=== PATIENT | male | born 2000 | race Caucasian/White ===

== ENCOUNTER 2018-01-26 19:22 | Emergency (ER) | payer OTHER ==
--- NOTE | 2018-01-26 21:08 | ED Physician Documentation ---
PD HPI UPPER EXT INJURY - Stated complaint Stated Complaint: LT MIDDLE FINGER LAC - Chief complaint Chief Complaint: Laceration - History obtained from History obtained from: Patient - History of Present Illness Location: Left, Hand, Finger Type of injury: Laceration Where injury occurred: Home Timing - onset: Today Timing - details: Abrupt onset, Still present Worsened by: Moving, Palpating Similar symptoms before: Has not had sx before Recently seen: Not recently seen - Additonal information Additional information: Patient is a 17 year old male with no significant past medical history who is presenting to the emergency department for a hand laceration. Patient states that he was trying to scrap a sticker off his windshield with a razor blade and it slipped and came back and cut his finger and his hand. patient is up to date on his tetanus. Review of Systems Ten Systems: 10 systems reviewed and negative Skin: reports: Laceration (s) Musculoskeletal: reports: Extremity pain PD PAST MEDICAL HISTORY - Past Medical History Past Medical History: No Other Past Medical History: MRSA to leg in 03/2017 - Past Surgical History Past Surgical History: No - Present Medications Home Medications: Ambulatory Orders Medication Instructions Recorded Confirmed No Known Home Medications [No 01/26/18 01/26/18 Known Home Medications] - Allergies Allergies/Adverse Reactions: Allergies Allergy/AdvReac Type Severity Reaction Status Date / Time No Known Drug Allergies Allergy Verified 01/26/18 19:37 - Social History Does the pt smoke?: Yes Smoking Status: Current every day smoker Does the pt drink ETOH?: No Does the pt have substance abuse?: No - Immunizations Immunizations are current?: Yes - POLST Patient has POLST: No PD ED PE NORMAL - Vitals Vital signs reviewed: Yes - General General: Alert and oriented X 3 - HEENT HEENT: Atraumatic - Cardiac Cardiac: RRR - Respiratory Respiratory: No respiratory distress - Abdomen Abdomen: Non distended - Neuro Neuro: Alert and oriented X 3, No motor deficit Eye Opening: Spontaneous Motor: Obeys Commands Verbal: Oriented GCS Score: 15 PD ED PE EXPANDED - Extremities Extremities: Left hand (1 cm flap laceration), Left finger(s) (1 cm flap laceration of distal portion of third digit, no fingernail involvement) Results - Vitals Vitals: Vital Signs - 24 hr 01/26/18 01/26/18 19:33 21:13 Temperature 36.8 C Heart Rate 61 56 L Respiratory 16 18 Rate Blood Pressure 139/55 H 127/71 O2 Saturation 100 97 Oxygen O2 Source Room air Procedures - Laceration (location) left hand Length in cm: 2 Wound type: Flap Neurovascular status: Sensory intact, Vascular intact Wound Preparation: Irrigated copiously NS, Wound explored Skin layer closure: Dermabond, Steri strips Other: Patient tolerated well, Dressing applied, Tetanus UTD Complexity: Simple PD MEDICAL DECISION MAKING - ED course Complexity details: reviewed old records, re-evaluated patient, considered differential, d/w patient ED course: Patient was seen and examined at bedside. patient's lacerations were cleaned and repaired as described above. Patient required no further work up and was stable for discharge with outpatient follow up. Departure - Departure Disposition: 01 Home, Self Care Clinical Impression: Laceration Condition: Good Instructions: ED Laceration Ext Skin Glue Follow-Up: primary, care provider [Other] - As Needed Comments: Your symptoms today are being caused by a hand laceration. You should keep the area clean and dry. You can take motrin or tylenol as needed for pain. You should monitor for signs of infection and follow up with your doctor for any of those signs. You may return to the emergency department at any time for new, worsening or uncontrollable symptoms. Discharge Date/Time: 01/26/18 21:14
[2018-01-26 21:14] VITALS: BP 127/71
== END 2018-01-26 21:14 | disposition home or self-care (01) ==
LOC: ED 19:22
DX: S61.213A Laceration without foreign body of left middle finger without damage to nail, initial encounter (principal); W45.8XXA Other foreign body or object entering through skin, initial encounter; Y92.009 Unspecified place in unspecified non-institutional (private) residence as the place of occurrence of the external cause
CPT/HCPCS: 12001; 99283

== ENCOUNTER 2019-01-18 20:09 | Emergency (ER) | payer OTHER ==
[2019-01-18 20:19] VITALS: BP 135/52
[2019-01-18] MEDS ORDERED: HYDROcod/ACET 5/325 Prepack 4 PO STA (21:53)
--- NOTE | 2019-01-18 21:54 | ED Physician Documentation ---
PD HPI LOWER EXT INJURY - Stated complaint Stated Complaint: LT KNEE PAIN - Chief complaint Chief Complaint: Ext Problem - History obtained from History obtained from: Patient - History of Present Illness PD HPI LOW EXT INJURY LOCATION: Left (Without specific injury he developed knee pain on both sides of the left knee tonight. He is never had this before. At times it is severe but mild on my evaluation. It is not associated with fevers or chills. He did run a mild today but that is not abnormal for him.) Review of Systems Constitutional: denies: Fever, Chills, Myalgias GI: denies: Abdominal Pain, Nausea, Vomiting PD PAST MEDICAL HISTORY - Past Surgical History Past Surgical History: No - Present Medications Home Medications: Ambulatory Orders Medication Instructions Recorded Confirmed No Known Home Medications 01/26/18 01/26/18 - Allergies Allergies/Adverse Reactions: Allergies Allergy/AdvReac Type Severity Reaction Status Date / Time No Known Drug Allergies Allergy Verified 01/18/19 20:19 - Social History Does the pt smoke?: Yes Smoking Status: Current every day smoker Does the pt drink ETOH?: No Does the pt have substance abuse?: No - Immunizations Immunizations are current?: Yes - POLST Patient has POLST: No PD ED PE NORMAL - Vitals Vital signs reviewed: Yes - General General: Alert and oriented X 3, No acute distress - Extremities Extremities: Other (The left knee is without effusion or tenderness. No warmth or redness. He has full range of motion. There is very mild tenderness in the bilateral joint lines anteriorly and up high, but ACL, PCL, LCL, MCL testing is all tight and without pain and negative grind testing. There is also no tenderness over the IT band.) - Neuro Neuro: Alert and oriented X 3, Normal speech Results - Vitals Vitals: Vital Signs - 24 hr 01/18/19 01/18/19 20:14 22:42 Temperature 36.9 C Heart Rate 91 79 Respiratory 17 17 Rate Blood Pressure 135/52 H O2 Saturation 96 100 Oxygen O2 Source Room air - Rads (name of study) 4v L knee Radiology: EMP read contemporaneously (Knee effusion without fracture. At the proximal tibial diaphysis there is a focal area of lucency with adjacent sclerosis measuring 2.8 x 1.5 cm which could represent a healing fibrous cortical defect. Consider further work-up to exclude malignancy.) Departure - Departure Disposition: Home, Self Care Clinical Impression: Left knee pain Qualifiers: Chronicity: acute Qualified Code(s): M25.562 - Pain in left knee Condition: Good Record reviewed to determine appropriate education?: Yes Comments: As discussed I suspect the abnormal x-ray represents an area where the cartilage never turned to bone. The radiologist is concerned that it might represent something else, follow-up with your flight surgeon tomorrow, he / she will need to set you up for an MRI of the left knee to further evaluate this abnormality. Return if worse. Discharge Date/Time: 01/18/19 22:43
--- NOTE | 2019-01-18 22:34 | XRAY Report ---
Reason: knee pain Procedure Date: 01/18/2019 Accession Number: [id number] / [id number] Procedure: XR - Knee 4 View LT CPT Code: FULL RESULT: EXAM: LEFT KNEE RADIOGRAPHY EXAM DATE: 01/18/2019 09:44 PM. CLINICAL HISTORY: Knee pain. No trauma. COMPARISON: None. TECHNIQUE: 4 views. FINDINGS: There appears to be a knee joint effusion. No subluxation. No evidence for acute fracture. At the proximal tibial diaphysis posterior aspect, there is a focal area of lucency with adjacent sclerosis, measures 2.8 x 1.5 cm, could represent a healing fibrous cortical defect. Correlate where the patient has pain. If the patient has pain here, then further workup is recommended to exclude malignancy. IMPRESSION: There appears to be a knee joint effusion. No subluxation. No evidence for acute fracture. At the proximal tibial diaphysis posterior aspect, there is a focal area of lucency with adjacent sclerosis, measures 2.8 x 1.5 cm, could represent a healing fibrous cortical defect. Correlate where the patient has pain. If the patient has pain here, then further workup is recommended to exclude malignancy. [facility]
== END 2019-01-18 22:43 | disposition home or self-care (01) ==
LOC: ED 20:09
DX: M25.562 Pain in left knee (principal); R93.6 Abnormal findings on diagnostic imaging of limbs; F17.200 Nicotine dependence, unspecified, uncomplicated
CPT/HCPCS: 99283